=== PATIENT | female | born 1950 | race Caucasian/White ===

== ENCOUNTER → 2024-07-15 12:09 | Outpatient (REF) | payer MEDICARE, OTHER, SELFPAY | LOC: HWWDC 12:09 | PROVIDERS: ATTENDING PHYSICIAN Nurse Practitioner | DX: Z12.31 Encounter for screening mammogram for malignant neoplasm of breast (principal) | CPT/HCPCS: 77063; 77067 ==

== ENCOUNTER → 2025-08-18 07:46 | Outpatient (REF) | payer MEDICARE, OTHER, SELFPAY ==
[2025-08-18 09:53] LABS: Hematocrit 36.9 % (37.0-47.0); Hemoglobin 11.7 g/dL (12.0-16.0); Mean Corp Hgb Conc. 31.7 g/dL (33.0-37.0); Mean Corpuscular Volume 95.1 fL (81.0-99.0); Nucleated Red Blood Cells % 0 %; Platelet Count 172 10^3/uL (130-400); Red Cell Dist. Width 12.3 % (11.5-14.5)
[2025-08-18 10:10] LABS: ALT (SGPT) 20 U/L (0-35); AST (SGOT) 27 U/L (14-36); Albumin 4.3 g/dl (3.5-5.0); Alkaline Phosphatase 98 U/L (38-126); Blood Urea Nitrogen 19 mg/dl (7-17); Calcium 9.3 mg/dl (8.4-10.2); Carbon Dioxide 30 mmol/L (22-30); Chloride 104 mmol/L (98-107); Glucose 92 mg/dl (70-99); HDL Cholesterol 86 mg/dl; LDL Cholesterol, Calculated 99 mg/dl; Potassium 4.0 mmol/L (3.5-5.1); Sodium 140 mmol/L (135-145); Total Protein 6.9 g/dl (6.3-8.2); Very Low Density Lipoprotein 10 mg/dl (0-30); eGFR > 60.00
== END ==
LOC: HWLAB 07:46
DX: R03.0 Elevated blood-pressure reading, without diagnosis of hypertension (principal); H35.30 Unspecified macular degeneration; M17.11 Unilateral primary osteoarthritis, right knee; Z82.3 Family history of stroke; D69.2 Other nonthrombocytopenic purpura
CPT/HCPCS: 36415; 80053; 80061; 85025

== ENCOUNTER → 2025-08-23 10:40 | Outpatient (REF) | payer MEDICARE, OTHER, SELFPAY ==
[2025-08-24 17:29] LABS: FIT-Fecal Occult Blood Interp Positive
== END ==
LOC: REG 10:40
DX: D64.9 Anemia, unspecified (principal)
CPT/HCPCS: 83520

== ENCOUNTER 2025-09-23 07:47 | Emergency (ER) | payer MEDICARE, OTHER, SELFPAY ==
[2025-09-23 07:49] VITALS: BP 146/65
[2025-09-23 08:08] VITALS: BP 126/65
[2025-09-23 08:18] VITALS: BMI 33.5
[2025-09-23 09:00] VITALS: BP 119/54
--- NOTE | 2025-09-23 09:16 | ED.GENMED ---
History of Present Illness
General
Chief Complaint: Heart Rate Problem
Source: patient and spouse
Exam Limitations: none
Time Seen by Provider: 09/23/25 08:42
Nursing documentation reviewed up to this point in time: agreed with
History of Present Illness
History of Present Illness:
75-year-old female with no reported chronic medical issues presents to the emergency room with her for evaluation of palpitations; she says her Apple Watch noted that she was in A-fib. 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
seen a facilities clerk. She says that she was lying in bed this morning around 6:30 AM and had sudden onset of palpitations and racing heart. She says she checked her Apple Watch and it told her she was in atrial fibrillation. She says symptoms were
not improving and so she ultimately came to the ER although shortly after arrival in the ER she says symptoms resolved. She is now completely asymptomatic. She says she did not have any associated chest pain, shortness of breath, dizziness. Has
otherwise been in her normal state of health and has not had similar symptoms in the past.
Review of Systems
Review of Systems
All Other Systems: ROS reviewed and negative except as documented in HPI and ROS
Respiratory: Denies trouble breathing
Cardiac: Reports palpitations; Denies chest pain
ABD/GI: Denies abdominal pain, nausea or vomiting
: Denies flank pain
Neurological: Denies dizzy or headache
Phy Exam
Physical Exam
Physical Exam:
General: Awake, alert, oriented x3; no acute distress
Head: Normocephalic, atraumatic
Eyes: Conjunctiva normal, sclera anicteric
Throat: Airway intact, handling secretions
Neck: Trachea midline, no JVD
Lungs: Clear to auscultation bilaterally, no wheezing, rales, rhonchi
Heart: Regular rate and rhythm, no murmurs, gallops, or rubs appreciated
Neuro: Grossly intact
Skin: Warm and dry
Extremities: No edema in extremities, warm and well-perfused
Scores
[id number] Score for Afib Stroke Risk
Age in Years (65=0, 65-74=1, >/=75=2): > or = 75
Sex (Female=+1): Female
Congestive Heart Failure History (Yes=+1): No
Hypertension History (Yes=+1): No
Stroke/TIA/Thromboembolism History (Yes=+2): No
Vascular Disease History (Yes=+1): No
Diabetes Mellitus (Yes=+1): No
Score: 3
Anticoagulation Recommendations: Recommend anticoagulation (as validated in nonvalvular fib)
Heart Failure Risk
Heart Failure Risk Score: Not Applicable
Heart Score for Chest Pain Patients
STEMI patient?: Not applicable
Withdrawal Assessment of Alcohol
Withdrawal Assessment Completed?: Not applicable
Course
Orders/Labs/Results
Orders:
Orders
09/23/25 07:53
Electrocardiogram (*1) Urgent
Reason for Study: Atrial Fibrillation
EKG- Treatment ONCE
09/23/25 09:14
Complete Blood Count/With Diff Urgent
Comprehensive Metabolic Panel Urgent
Magnesium Urgent
TSH Reflex To Free T4 Urgent
09/23/25 10:15
Apixaban [Eliquis] 5 mg PO ONCE ONE
Abnormal Lab Results
09/23/25
09:14
RBC 3.67 L 10^6/uL
(4.20-5.40)
Hgb 11.0 L g/dL
(12.0-16.0)
Hct 32.9 L %
(37.0-47.0)
MPV 11.5 H fL
(7.4-10.4)
Absolute Lymphs (auto) 0.9 L 10^3/uL
(1.2-3.4)
Lymphocytes % 18.2 L %
(20.5-51.1)
Chloride 108 H mmol/L
(98-107)
BUN 20 H mg/dl
(7-17)
09/23/25 09:14
09/23/25 09:14
Vital Signs
Initial and Last Documented VS:
Initial Vital Signs
Temp Pulse Resp BP Pulse Ox
36.4 C 87 20 146/65 93
09/23/25 07:49 09/23/25 07:49 09/23/25 07:49 09/23/25 07:49 09/23/25 07:49
Last Documented Vital Signs
Temp Pulse Resp BP Pulse Ox
36.4 C 75 12 119/54 96
09/23/25 07:49 09/23/25 09:00 09/23/25 09:00 09/23/25 09:00 09/23/25 09:21
MDM/Problems Addressed
Differential Diagnosis Includes:
A-fib, SVT, PACs/PVCs, anxiety
MDM/Problems Addressed:
75-year-old female presents after an episode of palpitations that has since resolved. Her Apple Watch read out as A-fib. She is now asymptomatic. Vital signs are normal. Her EKG here shows normal sinus rhythm. I was able to download EKG from
Apple watch (see below)�it does appear consistent with atrial fibrillation. Will plan to check basic screening labs, TFTs. Reviewed EKG with cardiology who agreed that it appears consistent with A-fib recommended starting on metoprolol/Eliquis and
they will set up for follow-up in the office.
Labs reviewed: CBC shows marginal but stable anemia. Chemistry no clinically significant abnormalities. Her TSH is acceptable. Patient clinically stable on reassessment, remains in sinus rhythm. Remains asymptomatic. Stable for discharge on
Toprol, Eliquis with cardiology follow-up on an outpatient basis. Spoke to patient about this plan, follow-up plan and return precautions. She feels very comfortable with this. All questions answered.
*Pulse Oximetry
SaO2: 96
Oxygen Mode of Delivery: Room air
Patient hypoxic: no (96%)
*EKG
Interpreted by ED Provider?: Yes
Heart Rate: 84
Rate: normal
Rhythm: sinus
[place]: left axis deviation
Interval: normal interval
QRS Pattern: left vent hypertrophy
Ischemia: no ischemia
*Critical Care Note
Total Time (30-74mins, 75-104mins- exclusive of procedures): Not Applicable
Data Reviewed
Source: patient and spouse
Patient Management
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
Update Note
Update Note:
ED Attending Note
-
Portions of this chart may have been created with voice recognition software.� Occasional wrong word or��sound alike� substitutions may have occurred due to the inherent limitations of voice recognition software.
Discharge Plan
Departure
Patient Disposition: Home (Routine Discharge)
Date of Disposition: 09/23/25
Time of Disposition: 10:15
Patient with high blood pressure during this ER visit?: Yes
Discharge Problem:
Atrial fibrillation
Instructions: Atrial Fibrillation (DC)
Prescriptions:
New
metoprolol succinate [Toprol XL] 25 mg tablet extended release 24 hr
12.5 mg PO DAILY Qty: 30 0RF
Eliquis 5 mg tablet
5 mg PO BID Qty: 60 0RF
Referrals:
Nicki Pereira MD [Active, Cardiology] - Call in 1-3 days for appt
Nikko Wiseman CRNP [Family Provider]
Activity Restrictions/Additional Instructions:
Thank you for visiting the Emergency Department at [facility].
1. Please schedule a follow up appointment as directed. Call first thing tomorrow morning to make an appointment.
2. If indicated, please take your medications as instructed and indicated on discharge paperwork.
3. If any of your symptoms do not improve, or persist, or become more severe within 6-12 hours, please return to the emergency department for further care.
4. Please return to the emergency department if you develop a headache, neck pain/stiffness, fever greater than 100.4F, chest pain, shortness of breath, persistent nausea, vomiting, slurred speech, difficulty walking, numbness/tingling, weakness,
signs of infection or any other symptoms that are worrisome to you.
Please call [phone] if you have any questions.
Interventions
Interventions:
*Neglect/Abuse Screening Last Done: 09/23/25 08:18
*ED COVID-19 Vaccine History Last Done: 09/23/25 08:18
*ED Influenza Vaccine History Last Done: 09/23/25 08:18
[facility] Fall Risk Assessment Tool Last Done: 09/23/25 08:18
*Risk Screen - Suicide (C-SSRS) Last Done: 09/23/25 08:18
ED- Cardiac Assessment Last Done: 09/23/25 08:18
ED- Pulmonary Assessment Last Done: 09/23/25 08:18
Discharge Date and Time
Print Language: [id number]
[2025-09-23 09:26] LABS: Hematocrit 32.9 % (37.0-47.0); Hemoglobin 11.0 g/dL (12.0-16.0); Mean Corp Hgb Conc. 33.4 g/dL (33.0-37.0); Mean Corpuscular Volume 89.6 fL (81.0-99.0); Nucleated Red Blood Cells % 0 %; Platelet Count 154 10^3/uL (130-400); Red Cell Dist. Width 12.2 % (11.5-14.5)
[2025-09-23 09:41] LABS: ALT (SGPT) 18 U/L (0-35); AST (SGOT) 24 U/L (14-36); Albumin 4.1 g/dl (3.5-5.0); Alkaline Phosphatase 103 U/L (38-126); Blood Urea Nitrogen 20 mg/dl (7-17); Calcium 9.0 mg/dl (8.4-10.2); Carbon Dioxide 26 mmol/L (22-30); Chloride 108 mmol/L (98-107); Estimated Creatinine Clearance 89 ml/min; Glucose 95 mg/dl (70-99); Magnesium 2.1 mg/dl (1.6-2.3); Potassium 3.7 mmol/L (3.5-5.1); Sodium 138 mmol/L (135-145); Total Protein 6.5 g/dl (6.3-8.2); eGFR > 60.00
[2025-09-23 10:00] VITALS: BP 120/60
[2025-09-23] MEDS: ELIQUIS 5 MG PO (10:24)
== END 2025-09-23 10:33 | disposition home or self-care (01) ==
LOC: EMR 07:47
PROVIDERS: EMERGENCY PHYSICIAN Emergency Medicine
DX: I48.91 Unspecified atrial fibrillation (principal); R03.0 Elevated blood-pressure reading, without diagnosis of hypertension; Z79.01 Long term (current) use of anticoagulants
CPT/HCPCS: 99284; 80053; 83735; 84443; 85025; 93005